=== PATIENT | male | born 1965 | race Caucasian/White ===

== ENCOUNTER → 2016-08-26 | Outpatient (CLI) | payer BC, OTHER ==
[~2016-08-26] MED LIST: AMPH20CA3 PO; AMPH20TA2 PO; ASPI-461 PO; ATV/1 PO; CLON0.5T3 PO; OXYC-57 PO; TEST1DIS TOP; TOPI100T20 PO; TRAZ-119 PO; VNTHFA/IN INH; [UNRECOGNIZED DRUG - CODE] PO
--- NOTE | 2016-08-26 11:43 | DIAGNOSTIC IMAGING REPORT ---
KUB CLINICAL HISTORY: Nephrolithiasis COMPARISON STUDY: No previous studies for comparison. FINDINGS: There are postsurgical changes within the lumbar spine. There is evidence of a laminectomy and L3-4 discectomy and interbody fusion. There is posterior pedicle screw fixation. There is no pathologic bowel dilatation. There are surgical clips within the right upper quadrant consistent with a prior cholecystectomy. Tangential lower pole right renal calculi are visualized measuring 10 mm in aggregate. There are no calcifications suspicious for ureteral calculi. IMPRESSION: Right-sided nephrolithiasis. Electronically signed by: Jefry Oakes M.D. 08/26/2016 11:42 AM Dictated Date/Time: 08/26/2016 11:41 AM
== END | disposition home or self-care (01) ==
LOC: C.RAD1850 11:29
PROVIDERS: ATTEND Urology
DX: E66.9 Obesity, unspecified (principal); N20.0 Calculus of kidney

== ENCOUNTER → 2016-09-22 | Outpatient (CLI) | payer BC, OTHER ==
[~2016-09-22] MED LIST changes: -ATV/1 PO; -[UNRECOGNIZED DRUG - CODE] PO
--- NOTE | 2016-09-22 16:51 | DIAGNOSTIC IMAGING REPORT ---
KUB CLINICAL HISTORY: Calculus of kidney. COMPARISON STUDY: KUB August 26, 2016 FINDINGS: Spine fusion hardware is incidentally noted. Right-sided renal calculi are noted. There appear to be 2 closely apposed calculi which measure up to 7 mm. There is a suspected small left renal calculus. No ureteral calculi are identified. IMPRESSION: 1. No change in right-sided nephrolithiasis. 2. Suspected small left renal calculi. 3. No ureteral calculi. Electronically signed by: Karri Quintana M.D. 09/22/2016 4:50 PM Dictated Date/Time: 09/22/2016 4:47 PM
== END | disposition home or self-care (01) ==
LOC: C.RAD1850 16:19
PROVIDERS: ATTEND Urology
DX: N20.0 Calculus of kidney (principal)

== ENCOUNTER → 2016-09-23 | Day surgery (SDC) | payer BC, OTHER ==
--- NOTE | 2016-09-09 10:34 | DIAGNOSTIC IMAGING REPORT ---
CHEST 2 VIEWS ROUTINE CLINICAL HISTORY: Preoperative chest COMPARISON STUDY: 08/09/2011 FINDINGS: The cardiac and mediastinal contours are normal. There is no evidence of focal pulmonary consolidation. There is no evidence of failure. No pleural effusions are visualized.[ IMPRESSION: No active disease in the chest. Electronically signed by: Jefry Oakes M.D. 09/09/2016 10:33 AM Dictated Date/Time: 09/09/2016 10:33 AM
[2016-09-09 12:19] LABS: BASO % 0.2 %; BASO ABS # 0.01 K/uL (0-0.2); COMPLETE YES; HEMATOCRIT 48.6 % (42-52); LYMPH % 24.4 %; LYMPH ABS # 1.19 K/uL (1.2-3.4); MEAN CELL VOLUME 94.9 fL (80-100); MEAN CORPUSCULAR HEMOGLOBIN 32.8 pg (25-34); MEAN CORPUSCULAR HGB CONC 34.6 g/dl (32-36); MEAN PLATELET VOLUME 10.5 fL (7.4-10.4); MONO % 10.3 %; NEUT % 64.1 %; PLATELET COUNT 159 K/uL (130-400); RED BLOOD COUNT 5.12 M/uL (4.7-6.1); WHITE BLOOD COUNT 4.87 K/uL (4.8-10.8)
[2016-09-09 12:22] LABS: URINE APPEARANCE CLEAR (CLEAR); URINE BILIRUBIN NEG (NEG); URINE COLOR YELLOW; URINE NITRITE NEG (NEG); URINE PH 7.5 (4.5-7.5); URINE SPECIFIC GRAVITY 1.019 (1.000-1.030); UROBILINOGEN NEG (NEG)
[2016-09-09 12:31] LABS: MANUAL MICROSCOPIC REQUIRED? NO; REVIEW REQ? NO
[2016-09-09 12:34] LABS: ALT/SGPT 35 U/L (12-78); BLOOD UREA NITROGEN 11 mg/dl (7-18); BUN/CREATININE RATIO 8.8 (10-20); CARBON DIOXIDE 25 mmol/L (21-32); CHLORIDE 108 mmol/L (98-107); GLUCOSE 113 mg/dl (70-99); SODIUM 141 mmol/L (136-145)
[2016-09-09 12:39] LABS: ALB/GLOB RATIO 1.2 (0.9-2); ALKALINE PHOSPHATASE 97 U/L (45-117); AST/SGOT 29 U/L (15-37); PROSTATE SPECIFIC ANTIGEN 0.323 ng/ml (0.000-4.000)
[2016-09-09 15:14] VITALS: Ht 182.9 cm; Wt 127.3 kg
[~2016-09-23] VITALS: Ht 182.9 cm; Wt 127.3 kg
[~2016-09-23] MED LIST changes: +ATROPINE SULFATE 0.1 MG/ML 5ML SYR IV PRN; +CIPROFLOXACIN 400MG / D5W IV SCH; +DEXAMETHASONE SOD INJ 4 MG/ML VIAL ONE; +FENTANYL CITRATE INJ 50 MCG/1 ML 2 ML VIAL IV PRN; +FENTANYL CITRATE INJ 50 MCG/1 ML 2 ML VIAL ONE; +LABETALOL HCL IV 5 MG/ML 20ML IV PRN; +LACTATED RINGER'S 1000ML 1,000 ML IV SCH; +LIDOCAINE HCL 2% 2 ML VIAL (20MG/ML) ONE; +MIDAZOLAM HCL 1 MG/ML 2ML VIAL ONE; +ONDANSETRON INJ 2 MG/ML 2 ML VIAL IV PRN; +ONDANSETRON INJ 2 MG/ML 2 ML VIAL ONE; +OXYCODONE/ACETAMINOPHEN 5-325 TAB PO PRN; +PROPOFOL IV EMULSION 10 MG/ML 20 ML VIAL IV ONE
--- NOTE | 2016-09-23 06:59 | History & Physical Bridge Note ---
H&P Re-Evaluation Bridge Note: I have examined the patient, reviewed the History & Physical and in the interval since the performance of the History & Physical I have noted the following changes of clinical significance: No changes noted
--- NOTE | 2016-09-23 07:50 | [facility] Post Operative Brief Note ---
Immediate Operative Summary Operative Date Sep 23, 2016. Pre-Operative Diagnosis Right Renal Calculi Post-Operative Diagnosis Same Procedure(s) Performed Right Extracorporeal Shock Wave Lithotripsy - Renal Surgeon Dr. Ann Anne Net Applications Developer Surgeon(s) None Estimated Blood Loss 0 mL Findings Good stone fragmentation on fluoro Specimens None Drains NA Anesthesia GALMA Complication(s) None Disposition Recovery Room / PACU
--- NOTE | 2016-09-23 07:55 | Discharge Instructions ---
Discharge Instructions Date of Service Sep 23, 2016. Admission Reason for Admission: Stones Discharge Discharge Diagnosis / Problem: R renal stone s/p ESWL Discharge Goals Goal(s): Decrease discomfort, Improve function, Improve disease control, Therapeutic intervention Activity Recommendations Activity Limitations: per Instructions/Follow-up section Lifting Limitations: no more than 25 pounds, gradually increase as tolerated ( over 3 days) Exercise/Sports Limitations: rest today, gradually increase as tolerated (over 3 days) May Resume Sexual Activity: when tolerated Shower/Bathe: no limitations Driving or Machine Use: resume 1 day after discharge . Instructions / Follow-Up Instructions / Follow-Up Strain urine as instructed, bring fragments to visit KUB Xray before follow-up visit Use home Percocet for any postop pain Discharge Diet Recommended Diet: Regular Diet (good fluid intake) Procedures Procedures Performed: Right Extracorporeal Shock Wave Lithotripsy - Renal Pending Studies Studies pending at discharge: no Medical Emergencies . Who to Call and When: Medical Emergencies: If at any time you feel your situation is an emergency, please call 911 immediately. . Non-Emergent Contact Non-Emergency issues call your: Urologist Call Non-Emergent contact if: you have a fever, temperature is above 101, your pain is not controlled, your pain is worsening, your pain is unusual for you, your pain is concerning you, you have any medication questions . . "Provider Documentation" section prepared by David Anne. . VTE Core Measure Inpt VTE Proph given/why not?: SCD's
--- NOTE | 2016-09-23 08:18 | OPERATIVE REPORT ---
DATE OF OPERATION: 09/23/2016 PREOPERATIVE DIAGNOSIS: 6 mm right renal stone. POSTOPERATIVE DIAGNOSIS: Same. PROCEDURE: Right-sided renal extracorporeal shockwave lithotripsy. SURGEON: Dr. David Anne. SENIOR COMMISSARY AGENT: None. ANESTHESIA: General anesthesia with laryngeal mask. COMPLICATIONS: None. FINDINGS: Good stone fragmentation on fluoroscopy. BRIEF HISTORY: Mr. Worthington is a pleasant 51-year-old male with history of osteoarthritis of the spine and stone disease. He has had difficulties with renal colic in the past and is proceeding with an elective right-sided shockwave lithotripsy for 6 mm renal stone at this point. He continues to have back pain which is felt to be from his osteoarthritis in origin and likely will be unchanged after this procedure. He has home Percocet which he will take in the postoperative period as necessary for analgesia. SCDs used for DVT prophylaxis today. OPERATION AND FINDINGS: DETAILS OF PROCEDURE: The patient was brought to the litho suite. He was correctly identified and the stone was visualized on his most recent x-rays. After the correct time out was performed the patient was positioned over the therapy head. An adequate level of anesthesia was administered. The extracorporeal shockwave lithotripsy treatment was then commenced. Please see the [facility] sheet for complete treatment summary. After completion of the procedure the patient was taken to the recovery room in stable condition. I attest to the content of the Intraoperative Record and any orders documented therein. Any exception s are noted below.
[2016-09-23 09:01] VITALS: BP 146/84; PULSE 62; TEMP 36.2; O2SAT 98
--- NOTE | 2016-09-23 09:03 | Anesthesia Progress Nt - [facility] ---
Anesthesia Post Op Note Date & Time Sep 23, 2016 at 09:03 Vital Signs Pain Intensity: 0 Vital Signs Past 12 Hours Date Time Temp Pulse Resp B/P (MAP) Pulse Ox O2 Delivery O2 Flow Rate FiO2 09/23/16 09:01 36.2 62 16 146/84 (104) 98 Room Air 09/23/16 08:48 36.2 79 16 108/67 (81) 96 Room Air 09/23/16 08:32 68 15 09/23/16 08:32 65 15 98 09/23/16 08:31 121/84 09/23/16 08:30 71 18 09/23/16 08:30 70 18 97 09/23/16 08:26 114/77 09/23/16 08:25 36.3 72 16 114/77 96 Room Air 09/23/16 08:25 65 15 97 09/23/16 08:25 65 15 09/23/16 08:21 134/83 09/23/16 08:20 67 14 09/23/16 08:20 67 14 96 09/23/16 08:16 125/82 09/23/16 08:15 67 14 98 09/23/16 08:15 67 14 09/23/16 08:11 115/90 09/23/16 08:10 68 18 09/23/16 08:10 68 18 100 09/23/16 08:06 117/80 09/23/16 08:05 66 12 100 09/23/16 08:05 66 12 09/23/16 08:01 131/82 09/23/16 08:00 76 17 09/23/16 08:00 75 17 100 09/23/16 07:56 115/81 09/23/16 07:55 71 12 09/23/16 07:55 71 12 99 09/23/16 07:51 121/68 09/23/16 07:50 36.5 75 16 121/68 98 Mask 8 09/23/16 06:27 36.6 76 16 130/80 (97) 100 Room Air Notes Mental Status: alert / awake / arousable, participated in evaluation Pt Amnestic to Procedure: Yes Nausea / Vomiting: adequately controlled Pain: adequately controlled Airway Patency, RR, SpO2: stable & adequate BP & HR: stable & adequate Hydration State: stable & adequate Anesthetic Complications: no major complications apparent
== END | disposition home or self-care (01) ==
LOC: X.SURG 06:09
PROVIDERS: ATTEND Urology
DX: N20.0 Calculus of kidney (principal); N40.0 Benign prostatic hyperplasia without lower urinary tract symptoms; E29.1 Testicular hypofunction; G47.33 Obstructive sleep apnea (adult) (pediatric); I82.409 Acute embolism and thrombosis of unspecified deep veins of unspecified lower extremity; E66.9 Obesity, unspecified; Z68.38 Body mass index [BMI] 38.0-38.9, adult; Z79.899 Other long term (current) drug therapy; Z79.82 Long term (current) use of aspirin; Z90.49 Acquired absence of other specified parts of digestive tract; Z98.890 Other specified postprocedural states

== ENCOUNTER → 2016-10-04 | Outpatient (CLI) | payer BC, OTHER ==
[~2016-10-04] MED LIST changes: -ATROPINE SULFATE 0.1 MG/ML 5ML SYR IV PRN; -CIPROFLOXACIN 400MG / D5W IV SCH; -DEXAMETHASONE SOD INJ 4 MG/ML VIAL ONE; -FENTANYL CITRATE INJ 50 MCG/1 ML 2 ML VIAL IV PRN; -FENTANYL CITRATE INJ 50 MCG/1 ML 2 ML VIAL ONE; -LABETALOL HCL IV 5 MG/ML 20ML IV PRN; -LACTATED RINGER'S 1000ML 1,000 ML IV SCH; -LIDOCAINE HCL 2% 2 ML VIAL (20MG/ML) ONE; -MIDAZOLAM HCL 1 MG/ML 2ML VIAL ONE; -ONDANSETRON INJ 2 MG/ML 2 ML VIAL IV PRN; -ONDANSETRON INJ 2 MG/ML 2 ML VIAL ONE; -OXYCODONE/ACETAMINOPHEN 5-325 TAB PO PRN; -PROPOFOL IV EMULSION 10 MG/ML 20 ML VIAL IV ONE; -TRAZ-119 PO; +TRAZ1TAB16 PO
== END | disposition home or self-care (01) ==
LOC: C.LABSPEC 17:05
PROVIDERS: ATTEND Nurse Practitioner Family
DX: N20.0 Calculus of kidney (principal)

== ENCOUNTER → 2016-10-04 | Outpatient (CLI) | payer BC, OTHER ==
--- NOTE | 2016-10-04 09:30 | DIAGNOSTIC IMAGING REPORT ---
KUB HISTORY: N20.0 Calculus of [id number] COMPARISON: KUB 09/22/2016. FINDINGS: The bowel gas pattern is unremarkable. There are no dilated loops of small bowel to suggest an obstruction. The right renal stone seen on the prior study is no longer visualized. However, this could be partially obscured by overlying bowel gas. No definite left renal calculi. No ureteral or bladder calculi. Posterior decompression and fusion within the lumbar spine. Cholecystectomy. No pneumoperitoneum or pneumatosis. IMPRESSION: No renal or ureteral calculi identified at this time. Electronically signed by: Christiano Ann M.D. 10/04/2016 9:29 AM Dictated Date/Time: 10/04/2016 9:26 AM
== END | disposition home or self-care (01) ==
LOC: C.RAD1850 09:08
PROVIDERS: ATTEND Urology
DX: N20.0 Calculus of kidney (principal)

== ENCOUNTER → 2017-06-08 | Day surgery (SDC) | payer BC, OTHER ==
[2017-06-01 09:54] VITALS: BMI 39.0
--- NOTE | 2017-06-07 18:15 | HISTORY & PHYSICAL EXAMINATION ---
DATE OF ADMISSION: 06/08/2017 ADMISSION HISTORY AND PHYSICAL HISTORY OF PRESENT ILLNESS: A 52-year-old male patient of Dr. Jerry complaining of chronic right shoulder pain since lifting a furniture in February of 2017. He has failed conservative treatment. An MRI has confirmed impingement, AC arthritis and a rotator cuff tear. The patient wished to proceed with a right shoulder arthroscopic subacromial decompression, distal clavicle excision and rotator cuff repair. PAST MEDICAL HISTORY: Asthma, sleep apnea with the use of CPAP, anxiety, diabetes mellitus, osteoarthritis, spine problems, neck problems, upper back problems, sciatica, acid reflux and obesity. SOCIAL HISTORY: Nonsmoker, nondrinker. PAST SURGICAL HISTORY: Spine surgery, knee surgery, hernia surgery, gallbladder and sinus surgery. FAMILY HISTORY: Noncontributory. REVIEW OF SYSTEMS: The patient complains of chronic right shoulder pain and decreased strength, otherwise denies any shortness of breath, chest pain, nausea, vomiting or any other joint complaints. MEDICATIONS: Include fexofenadine 180 mg daily, metformin daily, Alfuzosin 10 mg daily, oxycodone as needed, bupropion 75 mg 2 tablets daily in the morning. ALLERGIES: SHELLFISH. PHYSICAL EXAMINATION: GENERAL: Well-developed, well-nourished 52-year-old male in no acute distress. He is alert and oriented x3 and pleasant. HEENT: Normocephalic, atraumatic. Extraocular motions are intact. Pupils are equal and reactive to light. HEART: Regular rate and rhythm, no murmurs appreciated. LUNGS: Clear. ABDOMEN: Soft and nontender. Bowel sounds present. EXTREMITIES: Right shoulder reveals 3/4 strength. He has a positive Neer and Christian impingement maneuvering pain. He has positive AC joint tenderness. His range of motion is to 170 with forward elevation. NEUROLOGIC: Neurovascularly, he is intact in his right upper extremity. DIAGNOSES: Right shoulder impingement, acromioclavicular arthritis and rotator cuff tear. He also has a history of asthma, sleep apnea with the use of CPAP, anxiety, diabetes mellitus, osteoarthritis, spine problems, neck problems, back problems, sciatica, acid reflux, and obesity. PLAN: The patient was advised of his diagnosis. Indications, risks, benefits, postop course have all been reviewed. Necessary consent forms, preoperative testing and clearances will be obtained. The patient wished to proceed with a right shoulder arthroscopic subacromial decompression, distal clavicle excision and rotator cuff repair. ANNITAD
[~2017-06-08] VITALS: Ht 182.9 cm; Wt 131.0 kg
[~2017-06-08] MED LIST changes: +ALFU10TA2 PO; +AMOX500C3 PO; -ASPI-461 PO; +ATROPINE SULFATE 0.1 MG/ML 5ML SYR IV PRN; +CEFAZOLIN 3000MG IV PUSH 22.5 ML IV SCH; +DEXAMETHASONE SOD INJ 4 MG/ML VIAL ONE; +EpHEDrine SULFATE INJ 50 MG/ML AMP IV PRN; +EpINEphrine HCL INJ 1 MG/ML 1ML SYRINGE ONE; +FENTANYL CITRATE INJ 50 MCG/1 ML 2 ML VIAL IV PRN; +FENTANYL CITRATE INJ 50 MCG/1 ML 2 ML VIAL ONE; +FEXO1TAB49 PO; +GLC/500 PO; +GLYCOPYRROLATE INJ 0.2 MG/ML VIAL ONE; +HYDROmorphone INJ 1 MG/ML SYR IV PRN; +HYDROmorphone INJ 2 MG/ML SYR/VIAL ONE; +LABETALOL HCL IV 5 MG/ML 20ML IV PRN; +LACTATED RINGER'S 1000ML 1,000 ML IV SCH; +LIDOCAINE HCL 2% 2 ML VIAL (20MG/ML) ONE; +MELO7.5T5 PO; +MEPERIDINE HCL 25 MG/ML CARP IV PRN; +MIDAZOLAM HCL 1 MG/ML 2ML VIAL ONE; +MIRA1TAB3 PO; +NEOSTIGMINE METHYLSULFATE 1 MG/ML 10ML VIAL ONE; +ONDANSETRON INJ 2 MG/ML 2 ML VIAL IV PRN; +ONDANSETRON INJ 2 MG/ML 2 ML VIAL ONE; +OXYCODONE/ACETAMINOPHEN 5-325 TAB PO PRN; +PROPOFOL IV EMULSION 10 MG/ML 20 ML VIAL IV ONE; +ROCURONIUM BROMIDE 10 MG/ML 5 ML VIAL IV ONE; +ROPIVACAINE 0.5% 5 MG/ML 30 ML VIAL ONE; +SODIUM CHLORIDE 0.9% 1000ML 1,000 ML IV SCH; -TEST1DIS TOP; +TEST1INJ2 INJ; -TRAZ1TAB16 PO
[2017-06-08 07:15] VITALS: BP 134/90; PULSE 72; TEMP 36.5; O2SAT 95; Ht 182.9 cm; Wt 131.0 kg
--- NOTE | 2017-06-08 10:14 | [facility] Post Operative Brief Note ---
Immediate Operative Summary Operative Date Jun 08, 2017. Pre-Operative Diagnosis Right shoulder impingement, acromioclavicular arthritis and rotator cuff tear Post-Operative Diagnosis same Procedure(s) Performed right shoulder arthroscopic rotator cuff repair subacromial decompression and distal clavicle excision Surgeon Dr. Altamirano Education Adviser Surgeon(s) Alfredito Servin PA-C Estimated Blood Loss 5cc Findings Consistent with Post-Op Diagnosis Specimens none Drains None Anesthesia Type General Regional Complication(s) none
--- NOTE | 2017-06-08 10:38 | Discharge Instructions ---
Discharge Instructions Date of Service Jun 08, 2017. Admission Reason for Admission: Right Shoulder Impingement Syndrome, Rtc Tear Discharge Discharge Diagnosis / Problem: Right shoulder Rotator Cuff Repair, Decompression, distal clavicle excision Discharge Goals Goal(s): Improve function Activity Recommendations Activity Limitations: as noted below . Instructions / Follow-Up Instructions / Follow-Up Please see printed home exercise sheet, No formal PT until follow up in office. Please see printed Home Instruction Sheet No driving. Ice as needed. May change dressings and replace with band aides after post op day #2. May shower after post op day #2. Follow up with Dr. Altamirano 10-12 days post op, call [phone] to confirm appt. Current Hospital Diet Patient's current hospital diet: Discharge Diet Recommended Diet: Diabetes Type 2 Diet Procedures Procedures Performed: right shoulder arthroscopic rotator cuff repair subacromial decompression and distal clavicle excision Pending Studies Studies pending at discharge: no Medical Emergencies . Who to Call and When: Medical Emergencies: If at any time you feel your situation is an emergency, please call 911 immediately. . Non-Emergent Contact Non-Emergency issues call your: Primary Care Provider . "Provider Documentation" section prepared by Alfredito Servin. . VTE Core Measure Inpt VTE Proph given/why not?: SCD's
--- NOTE | 2017-06-08 11:12 | OPERATIVE REPORT ---
DATE OF OPERATION: 06/08/2017 INDICATION FOR PROCEDURE: The patient is a 52-year-old male who presents with chronic right shoulder pain after an injury. He has failed conservative management. He worked up with x-rays and MRI demonstrated he has a type 2-3 acromion process with moderate AC joint arthritis. His MRI demonstrates what appears to be a likely high-grade bursal sided partial tear rotator cuff, tear supraspinatus tendon. He has chronic subacromial bursitis. PREOPERATIVE DIAGNOSES: Right shoulder rotator cuff tear, impingement syndrome and acromioclavicular joint arthritis. POSTOPERATIVE DIAGNOSES: Same. PROCEDURE: Right shoulder arthroscopic rotator cuff repair, subacromial decompression, distal clavicle excision. SURGEON: Dr. Altamirano. PRINCIPAL LAW CLERK: Alfredito Servin PA-C. ANESTHESIA: Regional block and general. OPERATIVE PROCEDURE: The patient was taken to the operative room and anesthetized with regional block and general anesthetic. [facility] in 70 degree beach chair position. Exam demonstrated that he was fairly obese and mostly in is truncal area had a moderately obese arm as well. He had good range of motion. His right shoulder was sterilely prepped and draped in usual sterile fashion. Arthroscopy was performed via anterior, posterior, lateral and superior lateral arthroscopy portals with the following findings: The glenohumeral joint had normal articular surface on the glenoid and humeral head, normal labrum circumferentially and normal biceps anchor, and normal biceps tendon. Subscapularis tendon was intact. He had some minor undersurface fraying of the supraspinatus with a very thin, less than a millimeter delaminated flap. Infraspinatus tendon was intact. Subacromial space had a high-grade bursal-sided crescent-shaped tear of the supraspinatus with minimal retraction. There was some undersurface intratendinous degenerative tearing with the articular margin fibers still intact. The infraspinatus tendon was intact. There was chronic subacromial bursitis which was thickened and marked. There was fraying of the CA ligament consistent with chronic impingement. There was a type 3 shape to the acromion with spurs on the anterior acromion. The AC joint had some moderately severe osteoarthritis with a prominent AC joint contributing to impingement. Starting at glenohumeral joint, we debrided the small flap of the undersurface of the rotator cuff. Proceeding to the subacromial space, did a thorough subacromial bursectomy removing all the thickened subacromial bursal tissue. I ablated the bursa on the undersurface of the acromion and released the CA ligament off the anterior acromion debrided it back slightly. The inferior AC joint capsule was ablated to expose 1 cm distal clavicle and the arthritic spurs under the AC joint. A 5.5 bur was used for performed decompression plane down the acromion to a type 1 flat shape. 1 cm distal clavicle was resected. Rotator cuff was repaired by debriding the footprint of the supraspinatus bringing up the lateral greater tuberosity to stimulate a healing response, debriding the intratendinous region where there was degenerative tearing, removing all degenerative tissue. Then, the rotator cuff was repaired using a Q-FIX suture anchor in the lateral footprint of the supraspinatus and then we placed an Ultrabraid tape in an inverted mattress position and then passed Q-FIX sutures around the inverted mattress sutures using it as a rip-stop suture technique and then tied the Ultrabraid sutures with a Luis Enrique sliding locking knot 3 reverse half hitches alternating posts and the tapes were placed to a 5.5 footprint laterally. There was excellent fixation with the arm at the side and no tension, no impingement with rotation. The process closed with nylon suture, sterile dressing applied and sling immobilizer. Alfredito Servin was my first coat sander who functioned as first coat sander for the entire procedure. He assisted with suture management, arm positioning and retraction as necessary and he performed the skin closure, dressings, sling application and will participate in postoperative care of the patient. I attest to the content of the Intraoperative Record and any orders documented therein. Any exception s are noted below.
[2017-06-08 11:23] VITALS: BP 123/73; PULSE 78; TEMP 36.7; O2SAT 92
--- NOTE | 2017-06-08 11:40 | Anesthesiology Progress Note ---
Anesthesia Post Op Note Date & Time Jun 08, 2017 at 11:39 Vital Signs Pain Intensity: 0 Vital Signs Past 12 Hours Date Time Temp Pulse Resp B/P (MAP) Pulse Ox O2 Delivery O2 Flow Rate FiO2 06/08/17 11:15 36.3 79 21 129/85 93 Room Air 06/08/17 11:05 82 21 144/84 92 Room Air 06/08/17 10:55 74 26 138/87 91 Oxymask 10 06/08/17 10:45 82 17 127/90 96 Oxymask 10 06/08/17 10:38 36.1 75 13 143/74 95 Oxymask 10 06/08/17 07:15 36.5 72 20 134/90 (105) 95 Room Air Notes Mental Status: alert / awake / arousable, participated in evaluation Pt Amnestic to Procedure: Yes Nausea / Vomiting: adequately controlled Pain: adequately controlled Airway Patency, RR, SpO2: stable & adequate BP & HR: stable & adequate Hydration State: stable & adequate Anesthetic Complications: no major complications apparent
[2017-06-08 11:53] VITALS: BP 125/73; PULSE 72; TEMP 36.3; O2SAT 93
[2017-06-08 12:25] VITALS: BP 136/86; PULSE 86; TEMP 36.4; O2SAT 93
== END | disposition home or self-care (01) ==
LOC: C.ACU 06:06
PROVIDERS: ATTEND Orthopaedic Surgery Sports Medicine
DX: S46.011A Strain of muscle(s) and tendon(s) of the rotator cuff of right shoulder, initial encounter (principal); M75.51 Bursitis of right shoulder; M75.41 Impingement syndrome of right shoulder; M19.011 Primary osteoarthritis, right shoulder; X50.0XXA Overexertion from strenuous movement or load, initial encounter; G47.33 Obstructive sleep apnea (adult) (pediatric); F41.9 Anxiety disorder, unspecified; E11.9 Type 2 diabetes mellitus without complications; K21.9 Gastro-esophageal reflux disease without esophagitis; E66.9 Obesity, unspecified; J45.909 Unspecified asthma, uncomplicated; F90.9 Attention-deficit hyperactivity disorder, unspecified type; Z90.49 Acquired absence of other specified parts of digestive tract; Z87.442 Personal history of urinary calculi